=== PATIENT | male | born 1985 | race Caucasian/White ===

== ENCOUNTER 2019-09-13 00:02 | Emergency (ER) | payer OTHER ==
[2019-09-13 00:21] VITALS: BMI 24.4
--- NOTE | 2019-09-13 02:28 | PDOC ---
*Physical Exam - Vital Signs Last Vital Signs Temp Pulse Resp BP Pulse Ox 97.9 F 85 21 H 112/68 100 09/13/19 00:18 09/13/19 00:18 09/13/19 00:18 09/13/19 00:18 09/13/19 00:18 ED Treatment Course - LABORATORY CBC & Chemistry Diagram: 09/13/19 04:12 09/13/19 04:12 Medical Decision Making - Medical Decision Making 09/13/19 02:27 Patient seen by the advanced practice provider under my direct supervision. Ancillary testing reviewed as necessary. I agree with plan as outlined by the advanced practice provider. Discharge - Discharge Information Problems reviewed: Yes Clinical Impression/Diagnosis: Intoxication Condition: Stable Disposition: HOME - Follow up/Referral Referrals: Ga Garcia [Primary Care Provider] - - Patient Discharge Instructions Patient Printed Discharge Instructions: DI for Alcohol Abuse - Post Discharge Activity
--- NOTE | 2019-09-13 03:17 | PDOC ---
History of Present Illness - General Chief Complaint: Alcohol intoxication Stated Complaint: INTOX Time Seen by Provider: 09/13/19 02:20 History Source: Patient, Old Records Exam Limitations: Intoxication - History of Present Illness Initial Comments: 09/13/19 03:14 HISTORY OF PRESENT ILLNESS: 34-year-old male past medical history of polysubstance abuse (benzodiazepines and alcohol) who presents emergency department from [facility] for evaluation of head trauma status post fall. Patient was in the waiting room at [facility] while attempting to secure a spot in the detox facility when he stood up falling forward striking his head on the way to the floor. Patient is unsure if he struck the wall with his head or if he hit the floor but he denies loss of consciousness. 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 No recent travel or sick contacts. PAST MEDICAL HISTORY: Denies past medical history SURGICAL HISTORY: Denies ALLERGIES: No known drug allergies REVIEW OF SYSTEMS General/Constitutional: Denies fever or chills. Denies weakness, weight change. HEENT: See HPI Cardiovascular: Denies chest pain or shortness of breath. Respiratory: Denies cough, wheezing, or hemoptysis. Gastrointestinal: Denies nausea, vomiting, diarrhea or constipation. Denies rectal bleeding. Genitourinary: Denies dysuria, frequency, or change in urination. Musculoskeletal: Denies joint or muscle swelling or pain. Denies neck or back pain. Skin and breasts: Denies rash or easy bruising. Neurologic: Denies headache, vertigo, loss of consciousness, or loss of sensation. Psychiatric: Denies depression or anxiety. Endocrine: Denies increased thirst. Denies abnormal weight change. Hematologic/Lymphatic: Denies anemia, easy bleeding, or history of blood clots. Allergic/Immunologic: Denies hives or skin allergy. Denies latex allergy. PHYSICAL EXAM General Appearance: Well-appearing, appropriately dressed. No apparent distress. (+)intoxication. HEENT: EOMI, PERRLA, normal ENT inspection, normal voice, TMs normal, pharynx normal. No conjunctival pallor. No photophobia, scleral icterus. Neck: Supple. Trachea midline. No tenderness, rigidity, carotid bruit, stridor , lymphadenopathy, or thyromegaly. Respiratory/Chest: Lungs CTAB. No shortness of breath, chest tenderness, respiratory distress, accessory muscle use. No crackles, rales, rhonchi, stridor , wheezing, dullness Cardiovascular: RRR. S1, S2. No JVD, murmur, bradycardia, tachycardia. Vascular Pulses: Dorsalis-Pedis (R): 2+, Dorsalis-Pedis (L): 2+ Gastrointestinal/Abdominal: Normal bowel sounds. Abdomen soft, non-distended. No tenderness or rebound tenderness. No organomegaly, pulsatile mass, guarding, hernia, hepatomegaly, splenomegaly. Lymphatic: No adenopathy, tenderness. Musculoskeletal/Extremities: Normal inspection. FROM of all extremities, normal capillary refill. Pelvis Stable. No CVA tenderness. No tenderness to extremities, pedal edema, swelling, erythema or deformity. Integumentary: Abrasion present to the hairline at the right side of the forehead. Neurologic: utility worker II-XII intact. Fully oriented, alert. Appropriate mood/affect. Motor strength 5/5. No appreciable EOM palsy, facial droop or sensory deficit. Past History - Past Medical History Allergies/Adverse Reactions: Allergies Allergy/AdvReac Type Severity Reaction Status Date / Time No Known Allergies Allergy Verified 09/13/19 10:17 Home Medications: Ambulatory Orders Fluoxetine HCl [Prozac] 80 mg PO DAILY 09/12/19 Gabapentin [Neurontin -] 300 mg PO TID 09/12/19 COPD: No Psychiatric Problems: Yes - Psycho Social/Smoking Cessation Hx Smoking History: Current every day smoker Have you smoked in the past 12 months: Yes Number of Cigarettes Smoked Daily: 20 Information on smoking cessation initiated: No Hx Alcohol Use: Yes Drug/Substance Use Hx: Yes *Physical Exam - Vital Signs Last Vital Signs Temp Pulse Resp BP Pulse Ox 97.9 F 85 21 H 112/68 100 09/13/19 00:18 09/13/19 00:18 09/13/19 00:18 09/13/19 00:18 09/13/19 00:18 ED Treatment Course - LABORATORY CBC & Chemistry Diagram: 09/13/19 04:12 09/13/19 04:12 - RADIOLOGY Radiology Studies Ordered: Category Date Time Status HEAD CT WITHOUT CONTRAST [CT] Stat CT Scan 09/13/19 02:27 Taken Medical Decision Making - Medical Decision Making 09/13/19 03:13 A/P: 34-year-old male for evaluation of head trauma status post fall Cranial nerves II through XII grossly intact gait is steady Patient is unreliable due to reported alcohol and benzodiazepine use tonight prior to arrival. CT scan is read by imaging on-call: No evidence of hemorrhage, acute territorial infarct, mass-effect, midline shift, hydrocephalus or extra-axial collections. No hyperdense arterial or venous sign. Mild chronic left maxillary and right ethmoid sinus disease Labs including alcohol Urine toxicology Discharge to [facility] Discharge - Discharge Information Problems reviewed: Yes Clinical Impression/Diagnosis: Intoxication Condition: Stable Disposition: HOME - Follow up/Referral Referrals: Ga Garcia [Primary Care Provider] - - Patient Discharge Instructions Patient Printed Discharge Instructions: DI for Alcohol Abuse - Post Discharge Activity
[2019-09-13 04:36] LABS: BASO % 0.6 % (0-2.0); EOS % 1.6 % (0-4.5); HEMOGLOBIN 14.5 GM/dL (11.7-16.9); LYMPH % 30.8 % (8-40); MCH 33.9 pg (25.7-33.7); MCHC 34.6 g/dl (32.0-35.9); MEAN CELL VOLUME 97.9 fl (80-96); MONO % 11.8 % (3.8-10.2); NEUT % 55.2 % (42.8-82.8); PLATELET COUNT 205 K/MM3 (134-434); RBC 4.29 M/mm3 (4.00-5.60); RDW 13.4 % (11.9-15.9); WHITE BLOOD COUNT 3.9 K/mm3 (4.0-10.0)
[2019-09-13 04:55] LABS: ALBUMIN 3.4 g/dl (3.4-5.0); BILIRUBIN,TOTAL 0.2 mg/dL (0.2-1); BLOOD UREA NITROGEN 11.3 mg/dL (7-18); CALCIUM 8.3 mg/dL (8.5-10.1); CREATININE 0.9 mg/dL (0.55-1.3); POTASSIUM 3.6 mmol/L (3.5-5.1); TOT PROT 6.1 g/dl (6.4-8.2)
[2019-09-13 07:02] VITALS: BP 101/65; PULSE 77; TEMP 98.2
--- NOTE | 2019-09-13 08:32 | PDOC ---
*Physical Exam - Vital Signs Last Vital Signs Temp Pulse Resp BP Pulse Ox 98.2 F 77 18 101/65 96 09/13/19 07:00 09/13/19 07:00 09/13/19 07:00 09/13/19 07:00 09/13/19 07:00 - Physical Exam 09/13/19 08:32 Sign-out received from outgoing ER provider Jordy. Pt interviewed and examined. Ancillary studies reviewed. Spoke with intake at [facility] patient cleared by Dr. Clancy for return to . Patient awake, alert, fully ambulatory on discharge. 09/13/19 08:50 ED Treatment Course - LABORATORY CBC & Chemistry Diagram: 09/13/19 04:12 09/13/19 04:12 - ADDITIONAL ORDERS Additional order review: Laboratory Results 09/13/19 04:12 Sodium 142 Potassium 3.6 Chloride 110 H Carbon Dioxide 27 Anion Gap 5 L BUN 11.3 Creatinine 0.9 Est GFR (CKD-EPI)AfAm 126.90 Est GFR (CKD-EPI)NonAf 109.49 Random Glucose 91 Calcium 8.3 L Total Bilirubin 0.2 AST 15 ALT 27 Alkaline Phosphatase 59 Total Protein 6.1 L Albumin 3.4 Alcohol, Quantitative 89.6 H 09/13/19 04:12 RBC 4.29 MCV 97.9 H MCHC 34.6 RDW 13.4 MPV 7.0 L Neutrophils % 55.2 Lymphocytes % 30.8 Monocytes % 11.8 H Eosinophils % 1.6 Basophils % 0.6 Discharge - Discharge Information Problems reviewed: Yes Clinical Impression/Diagnosis: Intoxication Condition: Stable Disposition: HOME - Admission No - Follow up/Referral Referrals: Ga Garcia [Primary Care Provider] - - Patient Discharge Instructions Patient Printed Discharge Instructions: DI for Alcohol Abuse - Post Discharge Activity
== END 2019-09-13 09:00 | disposition home or self-care (01) ==
LOC: JER 00:02
DX: F10.920 Alcohol use, unspecified with intoxication, uncomplicated (principal); W18.39XA Other fall on same level, initial encounter; Y93.89 Activity, other specified; Y92.238 Other place in hospital as the place of occurrence of the external cause
CPT/HCPCS: 36415; 70450-TC; 80053; 80307; 85025; 99284-25

== ENCOUNTER 2019-09-13 09:29 | Inpatient (IN) | payer OTHER ==
[2019-09-13 10:23] VITALS: BMI 24.1
--- NOTE | 2019-09-13 11:10 | HP ---
CIWA Score - Admission Criteria OASAS Guidelines: Admission for Medically Managed Detox: Requires at least one of the followin. CIWA greater than 12 2. Seizures within the past 24 hours 3. Delirium tremens within the past 24 hours 4. Hallucinations within the past 24 hours 5. Acute intervention needed for co occurring medical disorder 6. Acute intervention needed for co occurring psychiatric disorder 7. Severe withdrawal that cannot be handled at a lower level of care (continued vomiting, continued diarrhea, abnormal vital signs) requiring intravenous medication and/or fluids 8. Admitting History and Physical - Admission Chief Complaint: "I don't want to ." History of Present Illness: 34 year old male with history of alcohol dependence with withdrawals yesterday. He was at [facility]. He was totally intoxicated with alcohol and uncooperative. The CT of head done in [facility] was negative. He was also given IVF's while in [facility] and he was transferred back today. He is drinking 2-3 pints of Whisky daily and has had a blackout 3 days ago. He is also using benzodiazpines illicitly. He is smoking 1.5 ppd for many years since age of [age] years old. PMH: None Psurg: None Psych: Generalized anxiety and depression on prozac. Last time took prozac 2 days ago. History Source: Patient Limitations to Obtaining History: No Limitations - Past Surgical History Past Surgical History: Yes: None - Advance Directives Advance Directives: No: Living Will, Health Care Proxy, DNR - Smoking History Smoking history: Current every day smoker Have you smoked in the past 12 months: Yes Aproximately how many cigarettes per day: 20 - Alcohol/Substance Use Hx Alcohol Use: Yes History of Substance Use: reports: Tranquilizers - Social History Usual Living Arrangement: Yes: Alone Do you think of yourself as: Straight/Heterosexual ADL: Independent Occupation: Construction work History of Recent Travel: No Admission [facility] Allergies/Adverse Reactions: Allergies Allergy/AdvReac Type Severity Reaction Status Date / Time No Known Allergies Allergy Verified 09/13/19 10:17 Exam Limitations: No Limitations - Ebola screening Have you traveled outside of the country in the last 21 days: No (NN) Have you had contact with anyone from an Ebola affected area: No Have you been sick,other than usual withdrawal symptoms: No Do you have a fever: No - Review of Systems Constitutional: No Symptoms Reported EENT: reports: No Symptoms Reported Respiratory: reports: No Symptoms reported Cardiac: reports: No Symptoms Reported GI: reports: No Symptoms Reported : reports: No Symptoms Reported Musculoskeletal: reports: No Symptoms Reported Integumentary: reports: No Symptoms Reported Neuro: reports: No Symptoms reported Endocrine: reports: No Symptoms Reported Hematology: reports: No Symptoms Reported Psychiatric: reports: Judgement Intact, Mood/Affect Appropiate, Orientated x3 Other Systems: Reviewed and Negative Patient History - Patient Medical History Hx Chronic Obstructive Pulmonary Disease (COPD): No - Patient Surgical History Past Surgical History: No - PPD History Previous Implant?: Yes Documented Results: Negative w/o proof Implanted On Prior [facility] Admission?: No PPD to be Administered?: Yes - Smoking Cessation Smoking history: Current every day smoker Have you smoked in the past 12 months: Yes Aproximately how many cigarettes per day: 20 Hx Chewing Tobacco Use: No Initiated information on smoking cessation: Yes 'Breaking Loose' booklet given: 09/13/19 - Substances abused Alcohol Substance route: Oral Frequency: Daily Amount used: WHISKEY AND BUDWEISER--UNKNOWN AMOUNT Age of first use: 11 Date of last use: 09/12/19 Alprazolam (Xanax) Substance route: Oral Frequency: 3-6 times per week Amount used: UNKNOWN AMOUNT Age of first use: 15 Date of last use: 09/11/19 Admission Physical Exam BHS - Vital Signs Vital Signs: Vital Signs - 24 hr 09/13/19 10:11 Temperature 97.8 F Pulse Rate 88 Respiratory 18 Rate Blood Pressure 117/83 - Physical General Appearance: Yes: Nourished, Appropriately Dressed, Mild Distress HEENTM: Yes: EOMI, Hearing grossly Normal, Normal ENT Inspection, Normocephalic , Normal Voice, KINDRA, Pharynx Normal, Tm's normal Respiratory: Yes: Chest Non-Tender, Lungs Clear, Normal Breath Sounds, No Respiratory Distress, No Accessory Muscle Use Neck: Yes: No masses,lesions,Nodules, Supple, Trachea in good position Breast: Yes: Within Normal Limits Cardiology: Yes: Regular Rhythm, Regular Rate, S1, S2 Abdominal: Yes: Normal Bowel Sounds, Non Tender, Flat, Decreased BS Genitourinary: Yes: Within Normal Limits Back: Yes: Normal Inspection Musculoskeletal: Yes: full range of Motion, Gait Steady, Pelvis Stable Extremities: Yes: Normal Capillary Refill, Normal Inspection, Normal Range of Motion, Non-Tender Neurological: Yes: proposal manager writer II-XII NML intact, Fully Oriented, Alert, Motor Strength 5/5, Normal Mood/Affect, Normal Response Integumentary: Yes: Normal Color, Warm Lymphatic: Yes: Within Normal Limits - Diagnostic (1) Alcohol dependence with intoxication Current Visit: Yes Status: Acute (2) Nicotine dependence Current Visit: Yes Status: Acute Cleared for Admission S - Detox or Rehab [facility] Level of Care: Medically Managed Detox Regimen/Protocol: Librium Claeared for Rehab Admission: No Screened but not Admitted - Documentation of Visit Screened but not Admitted: No Breathalyzer - Breathalyzer Breathalyzer: 0 (last drank yesterday) Urine Drug Screen - Test Device Lot number: [id number] Expiration date: 03/29/21 - Control Is test valid?: Yes - Results Drug screen NEGATIVE: No Urine drug screen results: THC-Marijuana, BZO-Benzodiazepines Inpatient Rehab Admission - Rehab Decision to Admit Inpatient rehab admission?: No
[2019-09-13] MEDS ORDERED: MAGNESIUM CITRATE 300 ML BOTTLE PO PRN (11:17)
[2019-09-13] MEDS ORDERED: MAG HYDROX/AL HYDROX/SIMETH 30 ML UNIT-DOSE CUP PO PRN (11:17)
[2019-09-13] MEDS ORDERED: IBUPROFEN 400 MG TABLET (FP) PO PRN (11:17)
[2019-09-13] MEDS ORDERED: chlordiazePOXIDE HCL 25 MG CAPSULE PO PRN (11:17)
[2019-09-13] MEDS ORDERED: MENTHOL/PHENOL 1 EACH UD MM PRN (11:17)
[2019-09-13] MEDS ORDERED: MAGNESIUM HYDROX 2400MG/30ML ORAL SUSPENSION 30 ML CUP PO PRN (11:17)
[2019-09-13] MEDS ORDERED: METHOCARBAMOL 500 MG TABLET PO PRN (11:17)
[2019-09-13] MEDS ORDERED: ACETAMINOPHEN 325 MG TABLET (FP) PO PRN ×2 (11:17)
[2019-09-13] MEDS ORDERED: BISMUTH SUBSALICYLATE 262 MG/15 ML BTL PO PRN (11:17)
[2019-09-13] MEDS: GABAPENTIN 300 MG CAPSULE PO SCH ×2 (13:55→22:24)
[2019-09-13] MEDS: chlordiazePOXIDE HCL 25 MG CAPSULE PO SCH ×3 (13:55→22:24)
[2019-09-13] MEDS ORDERED: AMMONIUM LACTATE 12% LOTION 225 GM BOTTLE TP PRN (14:01)
[2019-09-13] MEDS: THIAMINE HCL 100 MG TABLET (FP) PO SCH (22:24)
[2019-09-13] MEDS: MELATONIN 5 MG TABLETS PO PRN (22:25)
[2019-09-14] MEDS: chlordiazePOXIDE HCL 25 MG CAPSULE PO SCH ×4 (06:17→22:20)
[2019-09-14] MEDS: GABAPENTIN 300 MG CAPSULE PO SCH ×3 (06:18→22:19)
--- NOTE | 2019-09-14 09:33 | PN ---
S CIWA - CIWA Score Nausea/Vomitin-Mild Nausea/No Vomiting Muscle Tremors: 3 Anxiety: 3 Agitation: 1-Slight > Activity Paroxysmal Sweats: 2 Orientation: 0-Oriented Tacttile Disturbances: 0-None Auditory Disturbances: 0-None Visual Disturbances: 1-Very Mild Sensitivity Headache: 1-Very Mild CIWA-Ar Total Score: 12 BHS Progress Note (SOAP) Subjective: 34 years old male admitted on 09/13/19 for alcohol withdrawal sx management treating with librium detox regimen ate breakfast ambulating in room steady gait reports depression trouble sleep at night patient will be seen by a psychiatrist today belsomra 5 mg po x 1 Objective: 09/14/19 09:32 Vital Signs Temperature 97.2 F L 09/14/19 06:17 Pulse Rate 52 L 09/14/19 06:17 Respiratory Rate 18 09/14/19 06:17 Blood Pressure 102/66 09/14/19 06:17 O2 Sat by Pulse Oximetry (%) Laboratory Last Values RPR Titer Nonreactive (NONREACTIVE) 09/13/19 12:00 09/14/19 09:35 lab see 09/13/19 ER report no need for repeat Assessment: 09/14/19 09:35 alcohol withdrawal patient fell upon admission treated in ER for head trauma patient is alert oriented x 3 ate breakfast tolerated food and fluid well denies dizziness no blurred vision Plan: librium regimen
[2019-09-14] MEDS ORDERED: PATIENT'S OWN MEDICATION (NON-FORMULARY) (Fluoxetine Hcl [Prozac] 40 MG) PO SCH (10:00)
[2019-09-14] MEDS: PRENATAL VITAMINS W/ FOLIC ACID TABLET (FP) PO SCH (10:11)
[2019-09-14] MEDS: NICOTINE 14 MG/24 HOURS TOPICAL PATCH TD SCH (10:11)
[2019-09-14] MEDS ORDERED: NICOTINE POLACRILEX 2 MG GUM BUC PRN (21:17)
[2019-09-14] MEDS ORDERED: SUVOREXANT 5 MG TABLET PO ONE (22:00)
[2019-09-14] MEDS: MELATONIN 5 MG TABLETS PO PRN (22:20)
[2019-09-14] MEDS: THIAMINE HCL 100 MG TABLET (FP) PO SCH (22:22)
[2019-09-15] MEDS: chlordiazePOXIDE HCL 25 MG CAPSULE PO SCH ×4 (05:36→22:13)
[2019-09-15] MEDS: NICOTINE 14 MG/24 HOURS TOPICAL PATCH TD SCH (10:00)
[2019-09-15] MEDS: PRENATAL VITAMINS W/ FOLIC ACID TABLET (FP) PO SCH (10:00)
[2019-09-15] MEDS ORDERED: BISMUTH SUBSALICYLATE 262 MG/15 ML BTL PO PRN (11:14)
--- NOTE | 2019-09-15 11:14 | PN ---
BHS CIWA - CIWA Score Nausea/Vomitin Muscle Tremors: 1-None Visible, but [place] Anxiety: 1-Mildly Anxious Agitation: 1-Slight > Activity Paroxysmal Sweats: 1-Minimal Palms Moist Orientation: 0-Oriented Tacttile Disturbances: 1-Very Mild Itch/Numbness Auditory Disturbances: 0-None Visual Disturbances: 0-None Headache: 0-None Present CIWA-Ar Total Score: 8 BHS Progress Note (SOAP) Subjective: interrupted sleep, sweats, diarrhea Objective: 09/15/19 11:12 Vital Signs Temperature 96.4 F L 09/15/19 09:46 Pulse Rate 80 09/15/19 09:46 Respiratory Rate 18 09/15/19 09:46 Blood Pressure 101/64 09/15/19 09:46 O2 Sat by Pulse Oximetry (%) Laboratory Tests 09/13/19 12:00 RPR Titer Nonreactive pending labs pt aox3 in nad ambulating well Assessment: 09/15/19 11:13 withdrawal sx's Plan: cont. detox increase fluids peptobismol prn.
[2019-09-15] MEDS: NICOTINE 21 MG/24 HOURS TOPICAL PATCH TD SCH (13:39)
[2019-09-15] MEDS: hydrOXYzine PAMOATE 25 MG CAPSULE (FP) PO PRN (15:38)
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
[2019-09-15] MEDS: THIAMINE HCL 100 MG TABLET (FP) PO SCH (22:13)
[2019-09-15] MEDS: traZODone HCL 50 MG TABLET (FP) PO SCH (22:13)
[2019-09-15] MEDS: GABAPENTIN 300 MG CAPSULE PO SCH (22:13)
[2019-09-16] MEDS ORDERED: chlordiazePOXIDE HCL 10 MG CAPSULE PO PRN
[2019-09-16] MEDS: chlordiazePOXIDE HCL 10 MG CAPSULE PO SCH ×4 (06:02→22:14)
[2019-09-16] MEDS: GABAPENTIN 300 MG CAPSULE PO SCH (06:02)
[2019-09-16] MEDS ORDERED: FLUoxetine HCL 10 MG TABLET PO SCH (10:00)
[2019-09-16] MEDS: FLUoxetine HCL 20 MG CAPSULE PO SCH (10:12)
[2019-09-16] MEDS: NICOTINE 21 MG/24 HOURS TOPICAL PATCH TD SCH (10:12)
[2019-09-16] MEDS: PRENATAL VITAMINS W/ FOLIC ACID TABLET (FP) PO SCH (10:12)
--- NOTE | 2019-09-16 11:13 | PN ---
S CIWA - CIWA Score Nausea/Vomitin-No Nausea/No Vomiting Muscle Tremors: None Anxiety: 2 Agitation: 0-Normal Activity Paroxysmal Sweats: 3 Orientation: 0-Oriented Tacttile Disturbances: 0-None Auditory Disturbances: 0-None Visual Disturbances: 0-None Headache: 2-Mild CIWA-Ar Total Score: 7 BHS Progress Note (SOAP) Subjective: c/o sweats, anxiety, and mild headache. Objective: 09/16/19 11:12 Vital Signs 09/16/19 09/16/19 09/16/19 03:30 06:30 09:21 Temperature 96.1 F L 96.6 F L Pulse Rate 54 L 75 Respiratory 18 18 18 Rate Blood Pressure 99/65 97/62 Assessment: 09/16/19 11:12 AOX3, in no acute respiratory distress. Full ROM, ambulating in the unit. Withdrawal symptoms. Plan: continue detox.
[2019-09-16] MEDS: GABAPENTIN 400 MG CAPSULE PO SCH ×2 (15:52→22:14)
[2019-09-16] MEDS: traZODone HCL 50 MG TABLET (FP) PO SCH (22:14)
[2019-09-16] MEDS: THIAMINE HCL 100 MG TABLET (FP) PO SCH (22:14)
[2019-09-17] MEDS: chlordiazePOXIDE HCL 10 MG CAPSULE PO SCH ×2 (05:51→17:45)
[2019-09-17] MEDS: GABAPENTIN 400 MG CAPSULE PO SCH ×3 (05:51→21:52)
[2019-09-17] MEDS: NICOTINE 21 MG/24 HOURS TOPICAL PATCH TD SCH (10:13)
[2019-09-17] MEDS: PRENATAL VITAMINS W/ FOLIC ACID TABLET (FP) PO SCH (10:13)
[2019-09-17] MEDS: FLUoxetine HCL 20 MG CAPSULE PO SCH (10:13)
[2019-09-17] MEDS: hydrOXYzine PAMOATE 25 MG CAPSULE (FP) PO PRN (10:15)
--- NOTE | 2019-09-17 11:28 | PN ---
S CIWA - CIWA Score Nausea/Vomitin-No Nausea/No Vomiting Muscle Tremors: 1-None Visible, but [place] Anxiety: 2 Agitation: 0-Normal Activity Paroxysmal Sweats: 1-Minimal Palms Moist Orientation: 0-Oriented Tacttile Disturbances: 0-None Auditory Disturbances: 0-None Visual Disturbances: 0-None Headache: 0-None Present CIWA-Ar Total Score: 4 BHS Progress Note (SOAP) Subjective: 34 years old male admitted on 09/13/19 for alcohol withdrawal sx management treating with librium detox regimen feeling better today slept through the night less tremor Objective: 09/17/19 11:27 Vital Signs Temperature 96.0 F L 09/17/19 09:10 Pulse Rate 69 09/17/19 09:10 Respiratory Rate 18 09/17/19 09:10 Blood Pressure 104/69 09/17/19 09:10 O2 Sat by Pulse Oximetry (%) Laboratory Last Values RPR Titer Nonreactive (NONREACTIVE) 09/13/19 12:00 09/17/19 11:27 lab see 08/2019 report Assessment: 09/17/19 11:28 alcohol withdrawal Plan: librium regimen
[2019-09-17] MEDS: traZODone HCL 50 MG TABLET (FP) PO SCH (21:52)
[2019-09-17] MEDS: THIAMINE HCL 100 MG TABLET (FP) PO SCH (21:53)
[2019-09-18] MEDS ORDERED: chlordiazePOXIDE HCL 10 MG CAPSULE PO ONE (05:00)
[2019-09-18] MEDS: GABAPENTIN 400 MG CAPSULE PO SCH (05:14)
[2019-09-18 06:00] VITALS: TEMP 96.4
[2019-09-18 09:15] VITALS: BP 103/66; PULSE 85
--- NOTE | 2019-09-18 11:09 | DS ---
[facility] Detox Discharge Summary Admission Date: 09/13/19 Discharge Date: 09/18/19 - History Present History: Alcohol Dependence Additional Comments: 34 years old male admitted on 09/13/19 for alcohol withdrawal sx management treated with librium detox regimen patient has completed librium regimen and tolerated well alert oriented x 3 seen by psychiatrist resume prozac gabapentin and trazadone respiratory clear lungs bilaterally on auscultation skin warm and dry abdomen soft no rebound tenderness - Physical Exam Results Vital Signs: Vital Signs Temperature 96.4 F L 09/18/19 05:59 Pulse Rate 85 09/18/19 09:14 Respiratory Rate 18 09/18/19 09:14 Blood Pressure 103/66 09/18/19 09:14 O2 Sat by Pulse Oximetry (%) Pertinent Admission Physical Exam Findings: alcohol withdrawal Laboratory Last Values RPR Titer Nonreactive (NONREACTIVE) 09/13/19 12:00 lab see 08/2019 report Laboratory Last Values - Treatment Hospital Course: Detox Protocol Followed, Detoxed Safely, Responded well, Discharged Condition Good, Rehab Referral Accepted Patient has Accepted a Rehab Referral to: [facility] - Medication Discharge Medications: Ambulatory Orders Fluoxetine HCl [Prozac] 80 mg PO DAILY 09/12/19 Gabapentin [Neurontin -] 300 mg PO TID 09/12/19 - Diagnosis (1) Alcohol dependence with withdrawal, uncomplicated Status: Acute (2) Nicotine dependence Status: Acute Qualifiers: Nicotine product type: cigarettes Substance use status: in withdrawal Qualified Code(s): F17.213 - Nicotine dependence, cigarettes, with withdrawal (3) Substance induced mood disorder Status: Suspected - AMA Did Patient Leave Against Medical Advice: No CIWA Score - CIWA Score Nausea/Vomitin-No Nausea/No Vomiting Muscle Tremors: 1-None Visible, but [place] Anxiety: 1-Mildly Anxious Agitation: 0-Normal Activity Paroxysmal Sweats: No Perspiration Orientation: 0-Oriented Tacttile Disturbances: 0-None Auditory Disturbances: 0-None Visual Disturbances: 0-None Headache: 0-None Present CIWA-Ar Total Score: 2
== END 2019-09-18 11:27 | disposition home or self-care (01) | DRG 775 ==
LOC: YASAS 09:29 → Y3N 12:40
PROVIDERS: ADMIT Allergy & Immunology; ATTEND Allergy & Immunology
PROC: HZ2ZZZZ Detoxification Services for Substance Abuse Treatment (ICD-10-PCS; principal; 2019-09-13)
DX: F10.230 Alcohol dependence with withdrawal, uncomplicated (principal); F13.20 Sedative, hypnotic or anxiolytic dependence, uncomplicated; F17.213 Nicotine dependence, cigarettes, with withdrawal; F19.24 Other psychoactive substance dependence with psychoactive substance-induced mood disorder; F41.1 Generalized anxiety disorder; G47.00 Insomnia, unspecified
CPT/HCPCS: 36415; 86593